=== PATIENT | female | born 1995 | race Caucasian/White ===

== ENCOUNTER 2020-12-05 07:04 | Inpatient (IN) | payer OTHER, SELFPAY ==
[2020-12-05] VITALS (59 sets, daily range): BP systolic 94–124; BP diastolic 54–84; PULSE 25–101; RESP 12–18; TEMP 36.2–37.1; O2SAT 76–100; BMI 31.2
--- NOTE | 2020-12-05 07:04 | LDADM ---
This patient, Sandy Altamirano, was admitted to Labor/Delivery/Recovery 120 on 12/05/20 at 07:04. Plans for labor, pain management and were discussed with patient. Patient/family oriented to hospital policies and general routines including ID bracelet, bed and alarms, visiting hours, pain management, procedures, bathroom and other care routines, personal items, smoking policy, room service/diet and guest tray routines, security routines, and visiting hours. Patient/Family are encouraged to report perceived risks to care and to ask questions if they do not understand what they are told or what they should do. See OBIX for further documentation.
[2020-12-05] MEDS: LACTATED RINGERS 250 ML 999 ML IVPB (07:46)
[2020-12-05 08:00] LABS: Basophils Percent Auto 0.3 % (0.2-1.2); Eosinophils Absolute Auto 0.1 K/mm3 (0-0.3); Eosinophils Percent Auto 0.8 % (0-4.4); Hematocrit 30.8 % (37.0-47.0); Hemoglobin 10.4 g/dL (12.0-15.0); Immature Granulocyte Absolute 0.04 K/mm3 (0.00-0.031); Immature Granulocyte Percent A 0.3 % (0-0.5); Lymphocytes Absolute Auto 2.26 K/mm3 (0.9-3.2); Lymphocytes Percent Auto 19.2 % (18.3-44.2); Mean Corpuscular HGB Conc 33.8 g/dl (32-36); Mean Corpuscular Hemoglobin 30.1 pg (26-34); Mean Platelet Volume 10.6 fl (7.4-10.4); Monocytes Absolute Auto 0.8 K/mm3 (0.1-0.6); Monocytes Percent Auto 6.5 % (2.6-8.5); Neutrophils Absolute Auto 8.6 K/mm3 (1.3-6.7); Neutrophils Percent Auto 72.9 % (45.5-73.1); Platelet Count Result 264 k/mm3 (150-375); Red Blood Count 3.46 M/mm3 (4.2-5.4); Red Cell Distribution Width 14.2 % (11.5-14.5); White Blood Count 11.8 K/mm3 (4.5-10.0)
[2020-12-05 08:17] LABS: Amphetamine Screen Urine Negative (Negative); Barbiturate Screen Urine Negative (Negative); Benzodiazepines Screen Urine Negative (Negative); Cannabinoid Screen Urine Positive (Negative); Cocaine Screen Urine Negative (Negative); Methadone Screen Urine Negative (Negative); Opiate Screen Urine Negative (Negative); Phencyclidine Screen Urine Negative (Negative)
[2020-12-05] MEDS: LACTATED RINGERS 1,000 ML 125 ML IV CONT (08:29)
--- NOTE | 2020-12-05 08:30 | WPDANESEPPF ---
Anes - Initial Pre Proc Eval Procedure: Operation Date: 12/05/20 09:00 Proposed Procedures p Repeat Section with Bilateral Tubal Ligation - Graeme Hoover DO Date/Time: 12/05/20 08:30 Surgeon: Graeme Hoover DO Pre Op Diagnosis: repeat section w bilateral tubal ligation Patient Data Age: 25 Gender: F Height: 5 ft 3 in Weight: 80 kg Last Vital Signs Temp 36.6 C 12/05/20 07:28 Pulse 93 12/05/20 08:00 BP 119/77 12/05/20 08:00 Allergies Allergy/AdvReac Type Severity Reaction Status Date / Time No Known Allergies Allergy Verified 12/05/20 07:29 Home Medications Medication Instructions Recorded Confirmed Type No Home Medications 12/05/20 12/05/20 History Laboratory Tests 12/05/20 12/05/20 12/05/20 07:49 07:49 07:49 WBC 11.8 K/mm3 H K/mm3 (4.5-10.0) RBC 3.46 M/mm3 L M/mm3 (4.2-5.4) Hgb 10.4 g/dL L g/dL (12.0-15.0) Hct 30.8 % L % (37.0-47.0) MCV 89.0 fl fl (80-100) MCH 30.1 pg pg (26-34) MCHC 33.8 g/dl g/dl (32-36) RDW 14.2 % % (11.5-14.5) Plt Count 264 k/mm3 k/mm3 (150-375) MPV 10.6 fl H fl (7.4-10.4) Immature Gran % (Auto) 0.3 % % (0-0.5) Neut % (Auto) 72.9 % % (45.5-73.1) Lymph % (Auto) 19.2 % % (18.3-44.2) [place] % (Auto) 6.5 % % (2.6-8.5) Eos % (Auto) 0.8 % % (0-4.4) Baso % (Auto) 0.3 % % (0.2-1.2) Lymph # (Auto) 2.26 K/mm3 K/mm3 (0.9-3.2) [place] # (Auto) 0.8 K/mm3 H K/mm3 (0.1-0.6) Eos # (Auto) 0.1 K/mm3 K/mm3 (0-0.3) Baso # (Auto) 0.0 K/mm3 K/mm3 (0.0-0.1) Abs Immat Gran (auto) 0.04 K/mm3 H K/mm3 (0.00-0.031) Absolute Neuts (auto) 8.6 K/mm3 H K/mm3 (1.3-6.7) Absolute Nucleated RBC 0.0 K/mm3 K/mm3 (0.0-0.012) Nucleated RBC % 0.0 % % (0.0-0.2) Urine Opiates Screen Negative (Negative) Urine Methadone Screen Negative (Negative) Ur Barbiturates Screen Negative (Negative) Ur Phencyclidine Scrn Negative (Negative) Ur Amphetamine Screen Negative (Negative) U Benzodiazepines Scrn Negative (Negative) Urine Cocaine Screen Negative (Negative) U Cannabinoids Screen Positive A (Negative) RPR Pending Patient hx anesthesia problems: none Family hx anesthesia problems: none PMFSH Social History Social History Smoking status: Never smoker Anes - Eval Final PreProcedure Day of Procedure 12/05/20 08:30 Patient weight: overweight Heart: regular rate and rhythm Lungs: clear to auscultation Airway: Mallampati scale class II Neurological: alert and oriented Last oral intake: >/= 8 hours ASA classification: II Emergent: no Anesthetic plan: proceed Anesthesia type and monitoring: regional spinal and standard monitoring Informed Consent: The patient's anesthetic plan and its attendant risks and benefits were discussed with the patient/family/POA. Questions were solicited and answers provided to the satisfaction of the patient/family/POA.
--- NOTE | 2020-12-05 08:34 | PM.IMHP ---
H&P: HPI History of Present Illness Date/Time: 12/05/20 08:34 25yo presenting for scheduled repeat section and bilateral tubal ligation. No complaints today. Fetus with left multicystic dysplastic kidney. MFM consult and pediatric nephrology consult during care. Chief Complaint: Scheduled section Review of Systems Constitutional: Constitutional: Reports no additional constitutional complaints Cardiovascular: Cardiovascular: Reports no additional cardiovascular complaints Respiratory: Respiratory: Reports no additional respiratory complaints Gastrointestinal: Gastrointestinal: Reports no additional gastrointestinal complaints Genitourinary: Genitourinary: Reports no additional female genitourinary complaints Musculoskeletal: Musculoskeletal: Reports no additional musculoskeletal complaints Integumentary/Breasts: Skin/Breast: Reports system reviewed and no additional complaints, except as docu Neurologic: Reports system reviewed and no additional complaints, except as documented Psychiatric: Psychiatric: Reports no additional psychiatric complaints Endocrine: Endocrine: Reports no additional endocrine complaints Hematologic/Lymphatic: Hematologic/Lymphatic: Reports no additional hematologic/lymphatic complaints Allergic/Immunologic: Allergic/Immunologic: Reports no additional allergic/immunologic complaints [facility] Surgical History Surgical History (Updated 12/05/20 @ 08:39 by Graeme Hoover DO) H/O section History of tonsillectomy Family History Family History (Updated 12/05/20 @ 08:40 by Graeme Hoover DO) Mother Hypertension Social History Social History (Updated 12/05/20 @ 08:40 by Graeme Hoover DO) Smoking status: Never smoker Substance use: former Substance use type: marijuana and amphetamines Meds Home Medications and Allergies Home Medications Medication Instructions Recorded Confirmed Type No Home Medications 12/05/20 12/05/20 History Allergies Allergy/AdvReac Type Severity Reaction Status Date / Time No Known Allergies Allergy Verified 12/05/20 07:29 Vital Signs Vital Signs - 24 hr 12/05/20 07:28 12/05/20 07:41 12/05/20 07:45 Temperature 36.6 C Pulse Rate 99 101 H Blood Pressure 124/77 124/74 12/05/20 08:00 Temperature Pulse Rate 93 Blood Pressure 119/77 Exam Const: General: cooperative, healthy appearing, comfortable, no acute distress, well developed, alert, awake and Physically active Resp: Effort & Inspection: normal respiratory effort, able to speak in complete sentences, normal respiratory pattern, no audible wheezes, no cough and not labored Cardio: Rate: regular rate GI: GI Palp: No abdominal tenderness, Yes Soft to palpation and No Tenderness to palpation present (GI) Neuro: General: oriented to person, oriented to place, oriented to time and patient oriented x3 Psych: Appearance: grossly normal Mental Status: mental status grossly normal Speech and movement: Normal speech and movement present Affect: normal affect Attitude: cooperative Thought process: Normal thought process present Thought content: Yes Normal thought content present Insight: Good insight present (Psych) Judgement: Good judgement present (Psych) H&P: Results Labs Labs: Short CBC 12/05/20 Range/Units 07:49 WBC 11.8 H (4.5-10.0) K/mm3 Hgb 10.4 L (12.0-15.0) g/dL Hct 30.8 L (37.0-47.0) % Plt Count 264 (150-375) k/mm3 Assessment and Plan Assessment and plan (1) Family planning: Code(s): Z30.09 - Encounter for other general counseling and advice on contraception Status: Acute Assessment and Plan: Desires permanent sterilization with bilateral tubal ligation. Signed consent on chart (2) H/O section: Code(s): Z98.891 - History of uterine scar from previous surgery Status: Acute Assessment and Plan: Admit Repeat section and BTL Ro
--- NOTE | 2020-12-05 08:43 | WPDHPUPDATE1 ---
History and Physical Update Update Date/Time: 12/05/20 08:43 History and Physical has been reviewed, including an updated exam of the patient. There are NO changes in the patient's condition. Risks, benefits, and alternatives have been discussed and questions answered. Patient agrees to proceed with procedure.
[2020-12-05] MEDS: ceFAZolin 2 GM/D5W 50 ML 2 GM/50 ML BAG IVPB (09:02)
--- NOTE | 2020-12-05 10:11 | P.PCNOB_ITS ---
OB - Delivery Note Procedure Delivery date: 12/05/20 Procedure: Procedures Operation Date: 12/05/20 09:00 <No data on this case meets the specified criteria> Intrapartal events: None Induction method: none Delivery monitor: none Route of delivery: (Repeat Low transverse ) Quantitative Blood Loss (ml): 315 Narrative: Patient was transferred to the OR table and once adequate anesthesia was established, she was placed in dorsal position with left tilt of the hips. P reoperative antibiotics were administered. A timeout was performed to identify the correct patient and procedure. A pfannenstiel skin incision was made with the scalpel. Subsequent dissection of the subcutaneous layer was performed with the scalpel down to the level of the fascia. Bovie was used to obtain hemostasis from small bleeding vessels. Scar tissue encountered and carefully dissected. The fascia was nicked at the midline. Fasical incision was extended laterally with Santillan scissors. Nura clamps were used to tent the superior aspect of the fascia up and the rectus muscles were carefully dissected off the fascia. Scar tissue encountered and dissected carefully. Attention was then turned to the inferior aspect of the fascia and this was tented up with the Nura clamps and rectus muscles dissected off the fascia. The rectus muscles were divided at the midline and the peritoneum was bluntly entered. Carlos self-retaining retractor was inserted. A low transverse uterine incision was made. This was extended bluntly with cephalad and caudad force. Amniotic sac was entered and meconium stained fluid was noted. The was noted to be in OP position. The 's head was elevated to the level of the hysterotomy and delivered with gentle fundal pressure, followed by the rest of the body. Cord was clamped and cut and was handed off the nursing staff. Placenta was expressed. Hysterotomy was examined for any extensions and no extensions were noted. This was reapproximated with 0 Vicryl in continuous locking fashion. Good hemostasis noted. Bilateral ovaries and fallopian tubes appeared normal. Paracolic gutter were cleaned of any clots. The left fallopian tube was identified and tubal ligation was performed using the [place] method with 0-chromic. Portion of tube was obtained and sent to pathology. Attentions was turned to the right fallopian tube and tubal ligation performed with [place] method with 0-chromic. The fascia was then reapproximated with 0 Vicryl in continuous non-locking fashion. Subcutaneous tissue was reapproximated with 2-0 plain. The skin was reapproximated with 4-0 Monocryl in subcuticular fashion. Sterile bandage was applied. All sponge and instrument counts were correct during and at the end of the procedure. Patient tolerated the procedure was well and was transferred to recovery. [place] Baby Date of : 12/05/20 Time of : 09:32 Weeks of gestation at delivery: 39 gender: Male Weight (pounds): 6 Weight (ounces): 11 presentation: vertex Placenta delivery description: Expressed cord vessel description: 3 Vessels score one minute: 8 score five minutes: 9
[2020-12-05] MEDS: LACTATED RINGERS 1,000 ML 999 ML IV CONT ×2 (10:15→15:34)
[2020-12-05] MEDS: OXYTOCIN 30 UNITS/NS 500 ML 30 UNITS/500 ML BAG 125 UNITS IV CONT (11:10)
[2020-12-05] MEDS: MORPHINE SULFATE (*CRX) 2 MG/ML INJ 3 MG IV PUSH (11:49)
--- NOTE | 2020-12-05 13:08 | OBPPTRN ---
1229 Patient transferred to post room #290 via stretcher. Support person present. Oriented to unit, room, information board, rooming in, admission packet and security measures. Patient verbalizes understanding.
[2020-12-05] MEDS: KETOROLAC 30 MG/ML VIAL (*BKC) IV PUSH (13:45)
[2020-12-05] MEDS: SIMETHICONE 80 MG TAB.CHEW PO (19:50)
[2020-12-05] MEDS: DOCUSATE SODIUM 100 MG CAPSULE PO (19:50)
[2020-12-05] MEDS: IBUPROFEN 600 MG TABLET PO (19:51)
[2020-12-05] MEDS: HYDROcodone/acetaminophen (*CRX) 10-325 MG TABLET 1 TAB PO (19:51)
[2020-12-06] MEDS: HYDROcodone/acetaminophen (*CRX) 10-325 MG TABLET 1 TAB PO ×6 (00:10→20:17)
[2020-12-06 04:04] VITALS: BP 114/70; PULSE 76; RESP 20; TEMP 36.9; O2SAT 99
[2020-12-06] MEDS: IBUPROFEN 600 MG TABLET PO ×3 (04:58→20:18)
[2020-12-06 05:26] LABS: Basophils Percent Auto 0.2 % (0.2-1.2); Eosinophils Absolute Auto 0.1 K/mm3 (0-0.3); Eosinophils Percent Auto 0.8 % (0-4.4); Hematocrit 31.6 % (37.0-47.0); Hemoglobin 10.4 g/dL (12.0-15.0); Immature Granulocyte Absolute 0.11 K/mm3 (0.00-0.031); Immature Granulocyte Percent A 0.7 % (0-0.5); Lymphocytes Absolute Auto 2.79 K/mm3 (0.9-3.2); Lymphocytes Percent Auto 16.6 % (18.3-44.2); Mean Corpuscular HGB Conc 32.9 g/dl (32-36); Mean Corpuscular Hemoglobin 29.6 pg (26-34); Mean Platelet Volume 11.1 fl (7.4-10.4); Monocytes Absolute Auto 1.1 K/mm3 (0.1-0.6); Monocytes Percent Auto 6.5 % (2.6-8.5); Neutrophils Absolute Auto 12.7 K/mm3 (1.3-6.7); Neutrophils Percent Auto 75.2 % (45.5-73.1); Platelet Count Result 252 k/mm3 (150-375); Red Blood Count 3.51 M/mm3 (4.2-5.4); Red Cell Distribution Width 14.4 % (11.5-14.5); White Blood Count 16.8 K/mm3 (4.5-10.0)
[2020-12-06 06:45] LABS: Rapid Plasma Reagin Non-Reactive (NonReactive)
--- NOTE | 2020-12-06 07:38 | WPDANLDPN2 ---
Anes-Prog Note L&D Date/Time: 12/06/20 07:38 Comfortable throughout: section Neuraxial method: spinal Epidural/Spinal procedure site: clean & non-tender Neuro status: Neuro function grossly intact. Cardiovascular status: normal Respiratory status: normal Airway patency: baseline Mental status: baseline Post-Op hydration status: normal Vital Signs: Last Vital Signs Temp 36.9 C 12/06/20 04:04 Pulse 76 12/06/20 04:04 Resp 20 12/06/20 04:04 BP 114/70 12/06/20 04:04 Pulse Ox 99 12/06/20 04:04 Pain score (VAS): 2/10 I/O: Intake & Output 12/05/20 12/05/20 12/06/20 15:59 23:59 07:59 Intake Total 2350 1240 1600 Output Total 524 380 6611 Balance 1658 540 250 Post-procedural complaints: none Patient feedback: Patient satisfied with anesthetic care.
--- NOTE | 2020-12-06 07:38 | PM.OBPNVD ---
OB - PN: Subj Subjective Date/time seen: 12/06/20 07:38 25yo s/p repeat section and BTL on 12/05. Doing well this morning. Pain is well controlled. Tolerating diet. No passing flatus yet. No complaints. OB - PN: Obj Data Labs CBC & Chem 7: 12/06/20 04:49 Labs: Laboratory Results - last 24 hr 12/05/20 12/05/20 12/05/20 07:49 07:49 07:49 WBC 11.8 H RBC 3.46 L Hgb 10.4 L Hct 30.8 L MCV 89.0 MCH 30.1 MCHC 33.8 RDW 14.2 Plt Count 264 MPV 10.6 H Immature Gran % (Auto) 0.3 Neut % (Auto) 72.9 Lymph % (Auto) 19.2 [place] % (Auto) 6.5 Eos % (Auto) 0.8 Baso % (Auto) 0.3 Lymph # (Auto) 2.26 [place] # (Auto) 0.8 H Eos # (Auto) 0.1 Baso # (Auto) 0.0 Abs Immat Gran (auto) 0.04 H Absolute Neuts (auto) 8.6 H Absolute Nucleated RBC 0.0 Nucleated RBC % 0.0 Urine Opiates Screen Urine Methadone Screen Ur Barbiturates Screen Ur Phencyclidine Scrn Ur Amphetamine Screen U Benzodiazepines Scrn Urine Cocaine Screen U Cannabinoids Screen RPR Non-reactive Blood Type O Positive Antibody Screen Negative 12/05/20 12/06/20 07:49 04:49 WBC 16.8 H RBC 3.51 L Hgb 10.4 L Hct 31.6 L MCV 90.0 MCH 29.6 MCHC 32.9 RDW 14.4 Plt Count 252 MPV 11.1 H Immature Gran % (Auto) 0.7 H Neut % (Auto) 75.2 H Lymph % (Auto) 16.6 L [place] % (Auto) 6.5 Eos % (Auto) 0.8 Baso % (Auto) 0.2 Lymph # (Auto) 2.79 [place] # (Auto) 1.1 H Eos # (Auto) 0.1 Baso # (Auto) 0.0 Abs Immat Gran (auto) 0.11 H Absolute Neuts (auto) 12.7 H Absolute Nucleated RBC 0.0 Nucleated RBC % 0.0 Urine Opiates Screen Negative Urine Methadone Screen Negative Ur Barbiturates Screen Negative Ur Phencyclidine Scrn Negative Ur Amphetamine Screen Negative U Benzodiazepines Scrn Negative Urine Cocaine Screen Negative U Cannabinoids Screen Positive A RPR Blood Type Antibody Screen OB - PN A/P Assessment and Plan (1) Family planning: Code(s): Z30.09 - Encounter for other general counseling and advice on contraception Status: Acute Assessment and Plan: s/p BTL (2) Delivered by delivery following previous delivery: Code(s): O34.219 - Maternal care for unspecified type scar from previous delivery Status: Acute Assessment and Plan: Routine postpatum/postop care Pain management Ambulate Time Spent With Patient Time: Total time spent is greater than 50% in coordination of care (as documented) at patient's floor/unit and/or counseling patient: Exam Const: General: cooperative, healthy appearing, comfortable, no acute distress, well developed, alert, awake and Physically active Resp: Effort & Inspection: normal respiratory effort, able to speak in complete sentences, normal respiratory pattern, no audible wheezes and no cough Auscultation: clear to auscultation bilaterally Cardio: Rate: regular rate Rhythm: regular rhythm GI: Inspection: normal to inspection GI Palp: No abdominal tenderness, Yes Soft to palpation, No Tenderness to palpation present (GI) and No Guarding due to palpation present (GI) Other: dressing in place Neuro: General: oriented to person, oriented to place, oriented to time and patient oriented x3 Psych: Appearance: grossly normal Mental Status: mental status grossly normal Affect: normal affect Attitude: cooperative Thought process: Normal thought process present Thought content: Yes Normal thought content present Insight: Good insight present (Psych) Judgement: Good judgement present (Psych)
--- NOTE | 2020-12-06 07:39 | WPDANLDNPN2 ---
Anes-Prog Note L&D-Neuraxial Date/Time: 12/06/20 07:39 Neuraxial medications: intrathecal PF morphine Opiod-related complaints: none Patient feedback: Patient satisfied with post-operative pain management.
[2020-12-06] MEDS: DOCUSATE SODIUM 100 MG CAPSULE PO ×2 (08:01→17:00)
[2020-12-06 09:25] VITALS: BP 109/69; PULSE 57; RESP 18; TEMP 36.6; O2SAT 100
--- NOTE | 2020-12-06 13:02 | PCCCNOTE ---
Received referral for drug use during . Pt. and baby both positive for marijuana on urine drug screen. Met with pt. and father of baby at bedside. Pt. confirms marijuana use for nausea during . She denies any other drug use. She lives with father of baby and their 2 other children. She plans to return home with them at discharge. She denies any involvement with DCFS. Pt. and father of baby indicate having support. They state having all needed items to care for baby at discharge home. Pt. situation reported to DCFS and it does not meet criteria for investigation; it meets criteria for a child welfare referral to offer support/resources (Intake#[id number]). I have also provided additional resources to pt. and encouraged her to contact any/all of interest. Nursing reports no other concerns at this time.
[2020-12-06 20:00] VITALS: BP 120/63; PULSE 73; RESP 16; TEMP 36.5; O2SAT 100
[2020-12-07] MEDS: HYDROcodone/acetaminophen (*CRX) 10-325 MG TABLET 1 TAB PO ×4 (00:21→23:24)
[2020-12-07] MEDS: HYDROcodone/acetaminophen (*CRX) 5-325 MG TABLET 1 TAB PO ×2 (04:06→09:44)
[2020-12-07] MEDS: IBUPROFEN 600 MG TABLET PO ×4 (04:06→23:23)
[2020-12-07] MEDS: TETANUS,DIPHTHERIA,AC PERTUSSIS ADULT (0.5 ML) BOOSTRIX IM (05:54)
[2020-12-07 09:40] VITALS: BP 128/84; PULSE 83; RESP 14; TEMP 37; O2SAT 100
[2020-12-07] MEDS: DOCUSATE SODIUM 100 MG CAPSULE PO ×2 (09:46→17:22)
[2020-12-07] MEDS: SIMETHICONE 80 MG TAB.CHEW PO (09:46)
[2020-12-07] MEDS: MULTIVIT/MIN/PREN/FOL AC/IRON TABLET 1 TAB PO (09:46)
--- NOTE | 2020-12-07 13:02 | P.DS_ITS ---
DS: Admitting Diagnosis Admitting Diagnosis Admitting Diagnosis: DS: Discharge Diagnosis Discharge Diagnosis (1) Delivered by delivery following previous delivery: Code(s): O34.219 - Maternal care for unspecified type scar from previous delivery Status: Acute OB - DS: Summary OB Procedures : None OB Procedures Intrapartum: OB Procedures: : None Peripartum Data Procedures: Procedures Operation Date: 12/05/20 09:00 Actual Procedures Side Surgeon p Section Bilateral Graeme Hoover DO Time Spent with Patient Time attestation: Total time spent providing and/or coordinating discharge services: DS: Data Data Completed and Pending Pending studies at discharge: Pending at discharge 12/05/20 09:33 Surgical [PTH] Routine Surgical [PTH] Routine Discharge Plan Discharge Attending physician on discharge: Franko Yeboah Discharging Clinician: Franko Yeboah Anticipated Discharge Date/Time: 12/08/20 09:00 Patient Disposition: Home, Self-Care Activity: as tolerated Diet: as tolerated Wound Care Instructions: keep dressing dry and incision open to air Patient Instructions: Antibiotic Form Stand Alone Forms: General Discharge Information Follow-up/Referrals: Graeme Hoover DO [Physician] - 3 Weeks Discharge Medications: New hydrocodone-acetaminophen 5-325 mg Tablet 1 tablet PO Q6H PRN (Reason: Moderate Pain (4-6)) Qty: 30 RF: 0 ibuprofen 600 mg Tablet 600 mg PO Q6H PRN (Reason: Cramping) Qty: 30 RF: 0 No Action No Home Medications RF: 0 Date of admission: 12/05/20 07:04 Primary Care Provider: PHYSICIAN,EDGE STAINER MACHINE Admitting Provider: Graeme Hoover Attending physician on admission: Graeme Hoover Condition: Stable
--- NOTE | 2020-12-07 15:20 | PC.NURSE ---
It was noted today that pt's reported blood type on the sent from Dr. cline, reports pt's blood type as A+. Pt's reported blood type when drawn on 12-05-20, is O+. Traci contacted and Quan confirmed in pt's record her blood type is O+. Pt told that her blood type is O+.
[2020-12-07 16:00] VITALS: BP 125/73; PULSE 78; RESP 15; TEMP 36.6; O2SAT 99
[2020-12-07 20:20] VITALS: BP 123/71; PULSE 85; RESP 15; TEMP 36.9; O2SAT 99
[2020-12-08] MEDS: HYDROcodone/acetaminophen (*CRX) 5-325 MG TABLET 1 TAB PO ×4 (03:48→18:07)
--- NOTE | 2020-12-08 07:30 | PC.NURSE ---
Pt introductions made and plan of care discussed per post op c section, pain management, bottle feeding, daily care activities and pending discharge to home. PT appears to have no barriers to learning. Education through out the day will be one on one discussion with fob and pt as recipients, and using mom baby guide as a reference. Mom verbalized understanding of instructions.
[2020-12-08] MEDS: MULTIVIT/MIN/PREN/FOL AC/IRON TABLET 1 TAB PO (07:41)
[2020-12-08] MEDS: IBUPROFEN 600 MG TABLET PO ×2 (07:41→18:06)
[2020-12-08] MEDS: SIMETHICONE 80 MG TAB.CHEW PO (07:41)
[2020-12-08] MEDS: DOCUSATE SODIUM 100 MG CAPSULE PO ×2 (07:41→18:07)
[2020-12-08 07:45] VITALS: PULSE 76; RESP 18; O2SAT 99
[2020-12-08 09:05] VITALS: BP 126/82; PULSE 76; RESP 18; TEMP 36.7; O2SAT 99
--- NOTE | 2020-12-08 18:15 | PC.NURSE ---
Pt received discharge instructions per protocol and verbalized understanding
--- NOTE | 2020-12-08 19:19 | PC.NURSE ---
PT discharged to home ambulatory accompanied by infant and taken to waiting car. Follow up appts confirmed
[2020-12-09 10:58] VITALS: BP 130/78; PULSE 67; RESP 20; TEMP 36.6; O2SAT 99
--- NOTE | 2020-12-10 06:42 | PM.OBDSVD ---
DS: Admitting Diagnosis Admitting Diagnosis Admitting Diagnosis: OB - DS: Summary OB Procedures : None OB Procedures Intrapartum: Spontaneous Vag Delivery OB Procedures: : None Peripartum Data Procedures: Procedures Operation Date: 12/05/20 09:00 Actual Procedures Side Surgeon p Section Bilateral Graeme Hoover DO Time Spent with Patient Time attestation: Total time spent providing and/or coordinating discharge services: DS: Data Data Completed and Pending Completed studies during hospitalization: Pending at discharge 12/05/20 09:33 Surgical [PTH] Routine Surgical [PTH] Routine Discharge Plan Discharge Attending physician on discharge: Franko Yeboah Consulting providers: Diego Jaffe Discharging Clinician: Franko Yeboah Anticipated Discharge Date/Time: 12/08/20 09:00 Patient Disposition: Home, Self-Care Activity: as tolerated Diet: as tolerated Wound Care Instructions: keep dressing dry and incision open to air Discharge Instructions: Education: Mom and Baby Guide Given to: Mother Follow-Up: Call your delivering provider's office for an appointment to be seen in: 3 weeks Mom and baby should come to the [facility] for the follow-up appointment. Appointment Date/Time: December 09, 2020 at 8:00 am What to expect at your follow-up visit: Blood Pressure Check Removal of Roland Call [phone] if you are unable to keep your appointment time. BREAST CARE: * Wear a snug supportive bra. * For engorgement discomfort: Bottle Feeding: * May apply ice packs ABDOMINAL INCISION: (if applicable) * Allow incision to air dry * Do NOT use lotions for powders on your incision * When showering, allow soap and water to run over the incision, but do not wash incision PERINEAL CARE: * Until bleeding stops, use your imtiaz bottle after urinating * Change your pad frequently throughout the day * You may take sitz baths several times a day (fill your bathtub with warm water and soak for 20 minutes.) Do NOT bathe in the water * No tub baths until seen by your physician - You may shower ACTIVITY: * Rest as much as possible. * Do not exercise or lift anything heavier than your baby (such as laundry or other children.) * Avoid stairs or driving as much as possible. * Do not put anything into the vagina. No douching, tampons, or sexual activity until seen by physician. NOTIFY PHYSICIAN IF YOU HAVE ANY QUESTIONS OR IF ANY OF THE FOLLOWING SYMPTOMS OCCUR: * If your incision becomes red, swollen, or more painful than what you have experienced in the hospital. * If your vaginal bleeding becomes foul smelling. * If your vaginal bleeding becomes more heavy than a period or if your bleeding changes from pink to bright red. However, you may pass an occasional walnut-sized clot once or twice for the first week . * If you experience a sharp, shooting pain in you calves. * If you discover a hard, reddened area on your breast or if you experience flu-like symptoms. * If you have a fever of 100.4 or greater DIET: * Eat regular, well-balanced meals. * Drink plenty of fluids daily. If , drink to thirst. Patient Instructions: Antibiotic Form Stand Alone Forms: General Discharge Information Follow-up/Referrals: Graeme Hoover DO [Physician] - 3 Weeks Discharge Medications: New hydrocodone-acetaminophen 5-325 mg Tablet 1 tablet PO Q6H PRN (Reason: Moderate Pain (4-6)) Qty: 30 RF: 0 ibuprofen 600 mg Tablet 600 mg PO Q6H PRN (Reason: Cramping) Qty: 30 RF: 0 Date of admission: 12/05/20 07:04 Primary Care Provider: PHYSICIAN,OPHTHALMIC MEDICAL TECHNOLOGIST Admitting Provider: Graeme Hoover Attending physician on admission: Franko Yeboah Condition: Stable
== END 2020-12-08 19:19 | disposition home or self-care (01) | DRG 540 ==
LOC: ANHLDR 07:19 → ANHOB2 12-07 13:03 → ANHLDR 12-09 10:20 → ANHOB2 12-09 10:20
PROVIDERS: Admitting Provider Obstetrics & Gynecology; Visit Provider Obstetrics & Gynecology
PROC: 10D00Z1 Extraction of Products of Conception, Low, Open Approach (ICD-10-PCS; CPT 59514; principal; 2020-12-05 09:00)
DX: O34.211 Maternal care for low transverse scar from previous cesarean delivery (principal); Z30.2 Encounter for sterilization; O99.824 Streptococcus B carrier state complicating childbirth; Z3A.39 39 weeks gestation of pregnancy; Z37.0 Single live birth
CPT/HCPCS: 36415; 80307; 85025; 86592; 86850; 86900; 86901; 88302; 88307; 90715; A9270; J0131; J0690; J1885; J2270; J2274; J2370; J2590; J7120

== ENCOUNTER 2022-08-08 16:31 | Emergency (ER) | payer OTHER, SELFPAY ==
[2022-08-08 16:34] VITALS: BP 133/73; PULSE 128; RESP 18; TEMP 36.4; O2SAT 100
--- NOTE | 2022-08-08 17:38 | ED.URI ---
HPI - URI/Sore Throat General Chief Complaint: Upper Respiratory Infection Stated Complaint: fever Time Seen by Provider: 08/08/22 17:15 Source: patient Mode of arrival: ambulatory Limitations: no limitations History of Present Illness HPI Narrative: 27-year-old female presents today with complaints of left ear pain x5 days, chills, cough, fever that started today. Patient did note a little bit of nausea today but currently denies any. Patient heart rate currently 105. She denies vomiting, diarrhea. Related Data Allergies Allergy/AdvReac Type Severity Reaction Status Date / Time No Known Allergies Allergy Verified 08/08/22 16:38 Review of Systems Review of Systems: CONSTITUTIONAL: Chills and fevers sweats. EYES: Denies visual changes, redness, or discharge. ENT: Right ear pain. Denies rhinorrhea, congestion, sore throat. CARDIOVASCULAR: Denies chest pain, palpitations, or edema. RESPIRATORY: Cough. GASTROINTESTINAL: Denies abdominal pain, nausea, vomiting, or diarrhea. GENITOURINARY: Denies dysuria or hematuria. SKIN: Denies rash or itching. MUSCULOSKELETAL: Denies back pain, joint pain, or myalgia. NEUROLOGIC: Denies headache, numbness, dizziness, or weakness. PSYCHIATRIC: Denies anxiety or depression. [facility] Surgical History Surgical History H/O section History of tonsillectomy Family History Family History Mother Hypertension Social History Social History Smoking status: Never smoker Substance use: former Substance use type: marijuana and amphetamines Exam Narrative: GENERAL: Well-appearing, well-nourished, and in no acute distress. HEAD: Normocephalic, atraumatic. EYES: PERRLA and EOMI. ENT: Nares clear, no rhinorrhea or epistaxis. Mucous membranes moist. Oropharynx without tonsillar hypertrophy exudate or other lesions. Bilateral TMs pearly doyle bilateral effusions noted no erythema. NECK: Supple. No adenopathy or masses. CHEST: Clear to auscultation. No respiratory distress. No wheezes rales or rhonchi HEART: Tachycardia and regular rhythm. No murmur heard. Normal peripheral pulses. ABDOMEN: Soft, nontender, nondistended, normal active bowel sounds. EXTREMITIES: Normal range of motion. No edema. SKIN: Warm, dry, no rash. NEURO: No focal deficits. Alert and oriented x3. PSYCH: Normal mood and affect. Course Vital Signs Vital signs: Vital Signs Temperature 97.5 F L 08/08/22 16:34 Pulse Rate 128 H 08/08/22 16:34 Respiratory Rate 18 08/08/22 16:34 Blood Pressure 133/73 08/08/22 16:34 Pulse Oximetry 100 08/08/22 16:34 Oxygen Delivery Room Air 08/08/22 16:34 Temperature 97.5 F L 08/08/22 16:34 Pulse Rate 128 H 08/08/22 16:34 Respiratory Rate 18 08/08/22 16:34 Blood Pressure 133/73 08/08/22 16:34 Pulse Oximetry 100 08/08/22 16:34 Oxygen Delivery Room Air 08/08/22 16:34 MDM - URI/Sore Throat Differential Diagnosis Differential diagnosis: Likely upper respiratory infection, otitis media, sinusitis, viral infection, influenza and other (COVID) Medical Records Attestation: I reviewed the patient's medical records. Lab Data Attestation: I reviewed the patient's lab results. Labs: Lab Results 08/08/22 Range/Units 16:47 Influenza A (RT-PCR) Positive (Negative) Influenza B (RT-PCR) Negative (Negative) RSV (RT-PCR) Negative (Negative) SARS-CoV-2 RNA (RT-PCR) Negative Discharge Plan Discharge Clinical Impression: Influenza Patient Disposition: Home, Self-Care Condition: Stable Instructions: Antibiotic Form, Influenza (ED) Additional Instructions: You are seen in the emergency department today and diagnosed with influenza A. Please use Tylenol ibuprofen as needed for pain or fever. Treat symptoms as needed. May use [id number]
[2022-08-08 17:39] LABS: Influenza A QL RT-PCR Positive (Negative); Influenza B QL RT-PCR Negative (Negative); RSV RNA, RT-PCR Negative (Negative); SARS-CoV-2 RNA PCR Negative
== END 2022-08-08 18:19 | disposition home or self-care (01) ==
PROVIDERS: Nurse Practitioner Family; Emergency Provider Nurse Practitioner Family
DX: J10.1 Influenza due to other identified influenza virus with other respiratory manifestations (principal)
CPT/HCPCS: 87637; 99283